=== PATIENT | female | born 1995 | race Caucasian/White ===

== ENCOUNTER 2022-12-19 14:36 | Emergency (ER) | payer MEDICAID ==
[~2022-12-19] VITALS: Ht 165.1 cm; Wt 73.0 kg
[2022-12-19 14:38] VITALS: BP 118/78; PULSE 90; RESP 14; TEMP 98.1; O2SAT 100
[2022-12-19 15:41] LABS: HEMATOCRIT. 39.5 % (36.0-48.0); HEMOGLOBIN. 13.1 g/dL (12.0-16.0); MEAN CORPUSCULAR HEMOGLOBIN 28.4 pg (28.0-32.0); MEAN CORPUSCULAR VOLUME 85.7 fL (81.0-99.0); MEAN PLATELET VOLUME 10.2 fl (7.4-10.4); PLATELET 211 x1000/uL (130-400); RED CELL DISTRIBUTION WIDTH 14.4 % (11.6-14.6)
[2022-12-19 15:50] LABS: PROTHROMBIN TIME 11.1 sec (9.6-11.0)
[2022-12-19 16:00] LABS: CHLORIDE 106 mEq/L (98-107)
[2022-12-19 16:25] LABS: HCG SCREEN NEGATIVE
[2022-12-19 18:25] LABS: CLARITY URINE CLOUDY (CLEAR); COLOR URINE YELLOW (YELLOW); KETONES URINE TRACE (NEGATIVE); LEUKOCYTE ESTERASE URINE 2+ (NEGATIVE); NITRITE URINE NEGATIVE (NEGATIVE); OCCULT BLOOD URINE NEGATIVE (NEGATIVE); PROTEIN URINE TRACE (NEGATIVE); SPECIFIC GRAVITY URINE 1.033 (1.005-1.030)
[2022-12-19 18:29] LABS: PLATELET ESTIMATE NORMAL
[2022-12-19] MEDS ORDERED: METR-167 MT (21:14)
[2022-12-19] MEDS ORDERED: CEFTRIAXONE SODIUM 500 MG/VIAL IM ONE (21:15)
[2022-12-19] MEDS ORDERED: AZITHROMYCIN 500 MG TABLET PO ONE (21:15)
[2022-12-22 04:07] LABS: NEISSERIA GONORRHOEAE NAA Negative (Negative)
== END 2022-12-19 23:14 | disposition home or self-care (01) ==
LOC: ER 14:36
DX: R10.84 Generalized abdominal pain (principal); R51.9 Headache, unspecified
CPT/HCPCS: 87491; 87591; 80053; 81003; 84703; 83690; 85025; 85610; 87210; 36415; 93005; 99284; J0696; Z7610